=== PATIENT | male | born 1980 | race Caucasian/White ===

== ENCOUNTER 2017-10-28 05:27 | Inpatient (IN) | payer MEDICARE, MEDICAID ==
[~2017-10-28 05:27] MED LIST: GABA-533 PO; METO50 PO
[2017-10-28] MEDS ORDERED: RINGERS SOLUTION,LACTATED 1,000 ML IV ONE ×3 (05:40→06:50)
[2017-10-28] MEDS ORDERED: CeFAZolin 2 GM/DEXTROSE 50 ML IV ONE ×2 (05:40→07:00)
[2017-10-28 06:24] LABS: ANION GAP 8 mmol/L (8-16); CALCIUM, TOTAL 8.6 mg/dL (8.8-10.5); CARBON DIOXIDE 28 mmol/L (22-29); CHLORIDE 103 mmol/L (98-107); CREATININE 0.92 mg/dL (0.60-1.30); GLOMERULAR FILTR. RATE CALC > 60 mL/min (>60); SODIUM SERUM 139 mmol/L (136-145); UREA NITROGEN, BLOOD 9 mg/dL (7-18)
[2017-10-28 06:27] LABS: PROTHROMBIN TIME 10.5 SEC (9.4-11.6)
[2017-10-28 06:30] LABS: ALANINE AMINOTRANSFERASE 55 U/L (12-78); ALBUMIN 3.6 g/dL (3.4-5.0); ASPARTATE AMINOTRANSFERASE 28 U/L (15-37); BILIRUBIN,TOTAL 0.4 mg/dL (0.1-1.0); TOTAL PROTEIN, SERUM 7.7 g/dL (6.4-8.2)
[2017-10-28 06:34] LABS: BASOPHILS % (AUTO) 0.5 % (0.0-2.0); EOSINOPHILS % (AUTO) 2.3 % (1.0-6.0); HEMATOCRIT 42.5 % (41-53); HEMOGLOBIN 14.7 g/dL (13.5-17.5); LYMPHOCYTES # (AUTO) 4.1 K/uL (1.0-4.8); MEAN CORPUSCULAR HEMOGLOBIN 29.9 pg (26.0-34.0); MEAN CORPUSCULAR HGB CONC 34.5 G/dL (31.0-37.0); MEAN CORPUSCULAR VOLUME 87 fL (80-100); MONOCYTES # (AUTO) 0.6 K/uL (0.1-1.0); MONOCYTES % (AUTO) 5.4 % (2.0-9.0); NEUTROPHILS # (AUTO) 5.6 K/uL (1.8-7.7); NEUTROPHILS % (AUTO) 52.8 % (40.0-70.0); PLATELET COUNT (AUTO) 297 K/uL (150-450); RED BLOOD CELL COUNT(AUTO) 4.91 MIL/uL (4.50-5.90); RED CELL DISTRIBUTION WIDTH 13.4 % (11.5-14.5); WHITE BLOOD COUNT (AUTO) 10.6 K/uL (4.5-11.0)
[2017-10-28] MEDS ORDERED: MUPIROCIN CALCIUM 2% 22 GM OINTMENT ONE (06:50)
[2017-10-28] MEDS ORDERED: BUPIVACAINE HCL/PF 0.5% 30 ML VIAL ONE (06:50)
[2017-10-28] MEDS ORDERED: SODIUM CL IRRIG SOLN BAG 3,000 ML IRRIG ONE (06:50)
[2017-10-28] MEDS ORDERED: GUM MASTIC/STORAX/MSAL/ALCOHOL LIQUID 0.67 ML VIAL TP ONE (06:50)
[2017-10-28] MEDS ORDERED: SODIUM CHLORIDE 0.9% 1,000 ML IV ONE (06:51)
[2017-10-28] MEDS ORDERED: SODIUM CHLORIDE 0.9% 0 ML ONE (06:56)
[2017-10-28] MEDS ORDERED: MICROFIBRILLAR COLLAGEN 1 GM PACKAGE TP ONE (06:57)
[2017-10-28] MEDS ORDERED: LIDOCAINE HCL/PF 1% 2 ML VIAL ID ONE (07:00)
[2017-10-28] MEDS: RINGERS SOLUTION,LACTATED 1,000 ML IV SCH (07:00)
[2017-10-28] MEDS ORDERED: BUPIVACAINE LIPOSOME/PF 1.3%-13.3MG/ML SUSPENSION 20 ML VIAL INJ ONE (07:15)
[2017-10-28] MEDS ORDERED: ACETAMINOPHEN 1000 MG/ISO-OSM 100 ML IV ONE (07:58)
[2017-10-28] MEDS ORDERED: ONDANSETRON HCL 4 MG/2 ML VIAL IM PRN (08:30)
[2017-10-28] MEDS ORDERED: MEPERIDINE-PF 25 MG/ML SYRINGE IVP PRN (08:30)
[2017-10-28] MEDS: ACETAMINOPHEN 1000 MG/ISO-OSM 100 ML IV SCH ×3 (08:30→21:03)
[2017-10-28] MEDS ORDERED: FentaNYL CITRATE-PF 100 MCG/2 ML VIAL IVP PRN (08:30)
[2017-10-28] MEDS ORDERED: PROMETHAZINE HCL 25 MG/ML VIAL IM PRN (08:30)
[2017-10-28] MEDS ORDERED: HYDROmorphone 2 MG/ML SYRINGE IVP PRN (08:30)
[2017-10-28] MEDS ORDERED: VANCOMYCIN HCL 1 GM/VIAL ONE (08:37)
[2017-10-28] MEDS ORDERED: DOCUSATE SODIUM 100 MG CAPSULE PO SCH (09:00)
[2017-10-28] MEDS: CYCLOBENZAPRINE HCL 10 MG TABLET PO SCH ×3 (09:00→21:04)
[2017-10-28 12:00] VITALS: BP 130/76
[2017-10-28] MEDS: CeFAZolin 1 GM/DEXTROSE 50 ML IV SCH ×2 (16:01→23:22)
[2017-10-28 16:21] VITALS: BP 132/76
[2017-10-28] MEDS ORDERED: OXYGEN THERAPY IH SCH (20:00)
[2017-10-28 20:04] VITALS: BP 141/79
[2017-10-28] MEDS ORDERED: MORPHINE SULFATE 2 MG/ML SYRINGE IVP PRN (21:15)
[2017-10-28] MEDS ORDERED: MAGNESIUM HYDROXIDE SUSPENSION 30 ML UDCUP PO PRN (21:15)
[2017-10-28] MEDS ORDERED: ACETAMINOPHEN 325 MG TABLET PO PRN (21:15)
[2017-10-28] MEDS: METOPROLOL TARTRATE 25 MG TABLET PO SCH (21:59)
[2017-10-29 00:49] VITALS: BP 139/85
[2017-10-29] MEDS ORDERED: KETOROLAC TROMETHAMINE 60 MG/2 ML VIAL IM ONE (02:25)
[2017-10-29] MEDS ORDERED: PROPOFOL 1% 20 ML VIAL IVP ONE (02:25)
[2017-10-29] MEDS ORDERED: MIDAZOLAM HCL 2 MG/2 ML VIAL IVP ONE (02:25)
[2017-10-29] MEDS ORDERED: ROCURONIUM BROMIDE 10 MG/ML 5 ML VIAL IVP ONE (02:25)
[2017-10-29] MEDS ORDERED: DEXAMETHASONE SOD PHOS 4 MG/ML VIAL IVP ONE (02:25)
[2017-10-29] MEDS ORDERED: METOCLOPRAMIDE HCL 5 MG/ML 2 ML VIAL IVP ONE (02:25)
[2017-10-29] MEDS ORDERED: GLYCOPYRROLATE 0.2 MG/ML VIAL IM ONE (02:25)
[2017-10-29] MEDS ORDERED: LIDOCAINE HCL/PF 2% 5 ML SYRINGE IVP ONE (02:25)
[2017-10-29] MEDS ORDERED: ONDANSETRON HCL 4 MG/2 ML VIAL IVP ONE (02:25)
[2017-10-29] MEDS ORDERED: NEOSTIGMINE METHYLSULFATE 1 MG/ML 10 ML VIAL IVP ONE (02:25)
[2017-10-29] MEDS ORDERED: FentaNYL CITRATE-PF 100 MCG/2 ML VIAL IVP ONE (02:25)
[2017-10-29] MEDS: ACETAMINOPHEN 1000 MG/ISO-OSM 100 ML IV SCH ×2 (02:56→08:10)
[2017-10-29 06:41] VITALS: BP 136/76
[2017-10-29 06:53] LABS: ANION GAP 8 mmol/L (8-16); CALCIUM, TOTAL 9.6 mg/dL (8.8-10.5); CARBON DIOXIDE 26 mmol/L (22-29); CHLORIDE 102 mmol/L (98-107); CREATININE 1.06 mg/dL (0.60-1.30); GLOMERULAR FILTR. RATE CALC > 60 mL/min (>60); POTASSIUM 4.3 mmol/L (3.5-5.1); SODIUM SERUM 136 mmol/L (136-145); UREA NITROGEN, BLOOD 15 mg/dL (7-18)
[2017-10-29 07:18] LABS: B-TYPE NATRIURETIC PEPTIDE 37 pg/mL (0-100)
[2017-10-29 08:00] VITALS: BP 150/101
[2017-10-29] MEDS ORDERED: HYDROCODONE/ACETAMINOPHEN 10-325 MG TABLET PO PRN (08:00)
[2017-10-29] MEDS: METOPROLOL TARTRATE 25 MG TABLET PO SCH (08:10)
[2017-10-29] MEDS: CYCLOBENZAPRINE HCL 10 MG TABLET PO SCH (08:10)
[2017-10-29] MEDS: RINGERS SOLUTION,LACTATED 1,000 ML IV SCH (08:13)
[2017-10-29] MEDS ORDERED: PANTOPRAZOLE SODIUM 40 MG DR TABLET PO SCH (09:00)
[2017-10-29] MEDS ORDERED: DOCUSATE SODIUM 100 MG CAPSULE PO SCH (09:00)
[2017-10-29 12:00] VITALS: BP 148/98
[2017-10-29] MEDS ORDERED: HYDR-305 PO (12:14)
== END 2017-10-29 14:30 | disposition home or self-care (01) | DRG 502 ==
LOC: 4E 05:27 → EDSTATUS 07:30
PROVIDERS: ADMIT Orthopaedic Surgery; ATTEND Orthopaedic Surgery
PROC: 0L840ZZ Division of Left Upper Arm Tendon, Open Approach (ICD-10-PCS; 2017-10-28)
PROC: 0KN80ZZ Release Left Upper Arm Muscle, Open Approach (ICD-10-PCS; 2017-10-28)
PROC: 01N40ZZ Release Ulnar Nerve, Open Approach (ICD-10-PCS; principal; 2017-10-28 07:30)
DX: M21.931 Unspecified acquired deformity of right forearm (principal); G83.20 Monoplegia of upper limb affecting unspecified side; I10 Essential (primary) hypertension; L90.5 Scar conditions and fibrosis of skin; V29.9XXA Motorcycle rider (driver) (passenger) injured in unspecified traffic accident, initial encounter; Z88.8 Allergy status to other drugs, medicaments and biological substances
CPT/HCPCS: 86850; 86900; 86901; 87081; 88300; 93005; C9290; J0131; J0690; J1100; J1170; J1885; J2250; J2405; J2704; J2765; J3010; J3370; J3490; J7030; J7120